=== PATIENT | male | born 1945 | race Caucasian/White ===

== ENCOUNTER → 2016-05-12 | Outpatient (CLI) | payer MEDICARE, BC ==
[~2016-05-12] MED LIST: CALCIUM600 MG PO; FOLIC ACID 40400 MCG PO; FOSAMAX70 MG PO; LEVAQUIN500 MG PO; LIPITOR20 M1 PO; METHOTREXATE2.5 MG PO; OXAPROZIN600 MG PO; PLAQUENIL200 MG PO; PRILOSEC20 MG PO; RITUXIMAB; TRELSTAR IM; VITAMIN D1000 UNIT PO
== END | disposition disaster alternative care site (69) ==
LOC: GRAD 05-10 11:00
DX: C61 Malignant neoplasm of prostate (principal)

== ENCOUNTER → 2016-05-14 | Day surgery (SDC) | payer MEDICARE, BC ==
[~2016-05-14] VITALS: Ht 172.7 cm; Wt 84.6 kg
--- NOTE | ~2016-05-14 | OR ---
PATIENT'S NAME: WAYNE PAYNE [facility] AGE: 71 Y [address] ROOM: [place] [address] [place]ATION[place] [facility] [place] DATE: 05/14/2016 OR/Procedure Report DISCHARGE DATE: FAMILY PHYSICIAN: Paco Montoya PA-C ATTENDING PHYSICIAN: Sonali Newberry SURGEON: Sonali Newberry MD SENIOR MECHANICAL ESTIMATOR: Dr. Crawley. DATE OF PROCEDURE: 05/14/2016 PREOPERATIVE DIAGNOSIS: Adenocarcinoma of the prostate. POSTOPERATIVE DIAGNOSIS: Adenocarcinoma of the prostate. PROCEDURE PERFORMED: Fiducial marker placement. ANESTHESIA: General. COMPLICATIONS: None. INDICATION FOR PROCEDURE: The patient is a 71-year-old male with [place] 8 (4 + 4) adenocarcinoma of the prostate. The patient requests radiation therapy. DETAILS OF PROCEDURE: After informed consent was obtained, the patient was taken to the operating room. A general anesthetic was applied. He was placed in dorsal lithotomy position. Ultrasound probe was placed in the rectum, and the prostate was clearly visualized. First on the patient's right side, the needle with a fiducial marker was inserted to the base of the prostate and then removed. A second needle was then placed at the apex of the prostate. Fluoroscopy was performed, which revealed good placement of the markers. This was then repeated on the contralateral side. Again fluoroscopy was used which revealed good placement of the markers. The patient tolerated this procedure well and was transferred to recovery room in good condition. MD BALJINDER WEBER/jace /[id number] CC: aPco Montoya PA-C d: 05/14/162124 t: 05/24/161915, OPERATIVE SUMMARY
[2016-05-14 11:43] LABS: BASOPHIL # 0.1 K/uL (0.0-0.2); BASOPHIL % 0.8 %; EOSINOPHIL # 0.3 K/uL (0.0-0.5); EOSINOPHIL % 3.4 %; HEMATOCRIT 37.2 % (37.0-53.0); HEMOGLOBIN 12.4 g/dL (11.0-16.0); IMMATURE GRANULOCYTE % 0.4 %; LYMPHOCYTE # 1.4 K/uL (0.8-4.0); LYMPHOCYTE % 16.6 %; MCH 33.2 pg (27.0-34.0); MCHC 33.3 gm/dL (32.0-36.5); MCV 99.5 fl (83.0-98.0); MONOCYTE # 0.5 K/uL (0.0-1.0); MONOCYTE % 5.9 %; MPV 9.9 fl (9.4-12.4); NEUTROPHIL # (ANC) 6.2 K/uL (1.4-9.0); NEUTROPHIL % 72.9 %; NRBC % 0 /100WBC (0-0.00); PLATELET COUNT 322 K/uL (150-450); RBC 3.74 M/uL (3.50-5.50); RDW-CV 13.8 % (11.9-14.6); WBC 8.5 K/uL (4.0-11.0)
[2016-05-14 12:00] LABS: ALBUMIN 3.3 gm/dL (3.5-5.0); ALK PHOS 53 IU/L (33-138); ALT 31 IU/L (12-78); BLOOD UREA NITROGEN 15 mg/dL (6-24); CALCIUM 8.5 mg/dL (8.5-10.5); CHLORIDE 110 mMol/L (96-110); CO2 22 mMol/L (22-32); CREATININE 0.9 mg/dL (0.6-1.3); ESTIMATED GFR (MDRD EQUATION) > 60; SODIUM 142 mMol/L (135-145); TOTAL BILIRUBIN 0.7 mg/dL (0.0-1.5); TOTAL PROTEIN 6.7 g/dL (6.0-8.4)
[2016-05-14 12:03] LABS: ANION GAP 14.7 (10.0-19.0); AST 31 IU/L (10-40); POTASSIUM 4.7 mMol/L (3.7-5.1)
== END | disposition disaster alternative care site (69) ==
LOC: GPOC 05-07 17:00 → GSDC 10:45 → GPOC 11:00
PROVIDERS: Urology
PROC: 0VH001Z Insertion of Radioactive Element into Prostate, Open Approach (ICD-10-PCS; principal; 2016-05-14)
DX: C61 Malignant neoplasm of prostate (principal); R97.20 Elevated prostate specific antigen [PSA]; M06.9 Rheumatoid arthritis, unspecified; F17.210 Nicotine dependence, cigarettes, uncomplicated; Z88.2 Allergy status to sulfonamides; Z90.49 Acquired absence of other specified parts of digestive tract; Z79.899 Other long term (current) drug therapy
CPT/HCPCS: A4648; J1956; J2001; J2405; J7030

== ENCOUNTER → 2016-07-14 | Outpatient (CLI) | payer MEDICARE, BC ==
--- NOTE | ~2016-07-14 | ENPV ---
Vascular Lower Extremities DVT Study Procedure Demographics Patient Name WAYNE PAYNE Date of Study 07/14/2016 Patient Number [id number] Gender Male Date of 1945 Age 71 Visit Number [id number] Height Accession Number [id number] Weight Room Number BSA BMI Referring Jan Antonio I PAC Interpreting Anton Daniels MD Physician Physician Physician Ordering Physician Jan Antonio I Wireless Consultant PAC Radar Repairer Edmond Todd RVT Radha Kowalski BS, RT Conclusions Summary No evidence of deep vein thrombosis or superficial thrombophlebitis in the left lower extremity . Procedure Type of Study: Veins:Lower Extremities DVT Study, Lower Extremity Left. Indications for Study:Swelling of Limb. Patient Status:Routine. Study Location:Vascular Lab. Technical Quality:Adequate visualization. Velocities are measured in cm/s ; Diameters are measured in cm Right Lower Extremities DVT Study Measurements Right 2D and Doppler Measurements + + + + +------+------+ + !Location !Visualized!Compressibility!Thrombosis!Signal!Reflux!Reflux ! ! ! ! ! ! ! !(sec) ! + + + + +------+------+ + !GSV Thigh !Yes !Yes !None !Phasic! ! ! + + + + +------+------+ + !Common !Yes !Yes !None !Phasic! ! ! !Femoral ! ! ! ! ! ! ! + + + + +------+------+ + Left Lower Extremities DVT Study Measurements Left 2D and Doppler Measurements + + + + +------+------+ + !Location !Visualized!Compressibility!Thrombosis!Signal!Reflux!Reflux ! ! ! ! ! ! ! !(sec) ! + + + + +------+------+ + !GSV Thigh !Yes !Yes !None !Phasic!No ! ! + + + + +------+------+ + !Common !Yes !Yes !None !Phasic!No ! ! !Femoral ! ! ! ! ! ! ! + + + + +------+------+ + !Prox !Yes !Yes !None !Phasic!No ! ! !Femoral ! ! ! ! ! ! ! + + + + +------+------+ + !Mid Femoral!Yes !Yes !None !Phasic!No ! ! + + + + +------+------+ + !Dist !Yes !Yes !None !Phasic!No ! ! !Femoral ! ! ! ! ! ! ! + + + + +------+------+ + !Popliteal !Yes !Yes !None !Phasic!No ! ! + + + + +------+------+ + !Gastroc !Yes !Yes !None !Phasic!No ! ! + + + + +------+------+ + !PTV !Yes !Yes !None !Phasic!No ! ! + + + + +------+------+ + !Peroneal !Yes !Yes !None !Phasic!No ! ! + + + + +------+------+ + Signature dtt: KIMBERLY MCNEILL: 07/14/16 1353 Physician Self Edit
== END | disposition disaster alternative care site (69) ==
LOC: GCAR 13:46
DX: M79.89 Other specified soft tissue disorders (principal); M79.606 Pain in leg, unspecified; R06.00 Dyspnea, unspecified